=== PATIENT | male | born 1955 | race Caucasian/White ===

== ENCOUNTER 2019-02-06 12:42 | Inpatient (IN) ==
--- NOTE | 2019-02-06 13:11 | Emergency Department Note ---
Disposition Clinical Impression: Dizziness, Pre-syncope Hypertension Qualifiers: Hypertension type: unspecified Qualified Code(s): I10 - Essential (primary) hypertension Disposition: Admitted As Inpatient Time of Disposition: 16:09 General Adult HPI - General Chief complaint: ED Headache Stated complaint: Hypertension Time Seen by Provider: 02/06/19 12:54 Source: patient, family Mode of arrival: ambulatory Limitations: no limitations Nursing Notes Reviewed: Yes Vital Signs Reviewed: Yes - History of Present Illness HPI Narrative: 63M with PMHx of CVA and HTN presents to the ED from his PCP office after a near syncopal episode yesterday. Patient states once he was done mowing his yard yesterday he had an episode of extreme dizziness where he fell to the ground. The patient's fall was witnessed by his neighbor who went and got the patient's and they both helped him inside. The patient's took his blood pressure and thought it was extremely elevated. Patient went to his primary care doctor today because his blood pressure has maintained elevated even with administration of his at home losartan. Patient said his doctor sent him to the emergency room for evaluation of a possible stroke. Patient did not have any retained deficits from his previous stroke. Patient currently only complains of a headache and some minor dizziness which she describes as the room spinning around him. He states the dizziness worsens when he turns his head side to side or if he were to stand up suddenly. He denies any recent fevers, chills, chest pain, abdominal pain, N/V or changes in bowel habits. He admits to some shor tness of breath during the near syncopal episode which has now resolved. Pain Scale: 5 - Related Data Home Medications Medication Instructions Recorded Confirmed Ascorbate Calcium [Vitamin C] 500 mg PO DAILY 02/06/19 02/06/19 Cetirizine HCl [Zyrtec] 10 mg PO DAILY 02/06/19 02/06/19 Fluticasone Propionate Nasal 50 mcg NS DAILY PRN 02/06/19 02/06/19 [Flonase] Gemfibrozil 600 mg PO BID 02/06/19 02/06/19 Immune Glob/Plasma Fra Bovine 5 g PO DAILY 02/06/19 02/06/19 [Enteragam Powder Packet] Lipase/Protease/Amylase [Creon Dr 2 cap PO TIDWM 02/06/19 02/06/19 36,000 Units Capsule] Losartan Potassium 50 mg PO DAILY 02/06/19 02/06/19 Metformin HCl 500 mg PO BIDWM 02/06/19 02/06/19 Multivitamin [Daily Multiple 1 each PO DAILY 02/06/19 02/06/19 Vitamin] Omeprazole [PriLOSEC] 40 mg PO DAILY 02/06/19 02/06/19 Tamsulosin HCl 0.4 mg PO BID 02/06/19 02/06/19 Testosterone 100 mg TD DAILY 02/06/19 02/06/19 Allergies Allergy/AdvReac Type Severity Reaction Status Date / Time meperidine [From Demerol] Allergy See Verified 02/06/19 12:46 Comments morphine Allergy See Verified 02/06/19 12:46 Comments naproxen Allergy See Verified 02/06/19 12:46 Comments All systems ED: reviewed and negative except as stated. Review of Systems: As Per HPI Constitutional: Denies: fever, chills, weakness Cardiovascular: Denies: chest pain, palpitations, dyspnea on exertion Respiratory: Reports: dyspnea. Denies: cough, wheezes Gastrointestinal: Denies: abdominal pain, nausea, vomiting Genitourinary: Denies: dysuria, hematuria Musculoskeletal: Denies: back pain, neck pain Neurological: Reports: headache, vertigo Past Medical History - Past Medical History Attestation: Yes The following information was validated with the patient. Source: patient Medical history: Reports: GERD, hypertension Surgical history: Reports: cholecystectomy, herniorrhaphy, vasectomy Psychiatric history: Reports: no psych history - Social History Smoking Status: Never smoker Smokeless Tobacco Status: No Alcohol use: Reports: none Drug use: Reports: none Physical Exam - General Limitations: no limitations General appearance: alert, in no apparent distress - Head Head exam: atraumatic, normocephalic - Eye Eye exam: Present: normal appearance, EOMI - Chest Chest inspection: Present: normal inspection. Absent: tenderness, rash - Respiratory Respiratory exam: Present: normal lung sounds bilaterally. Absent: wheezes - Cardiovascular Cardiovascular exam: Present: regular rate, normal rhythm - Abdominal Exam Abdominal exam: Present: soft, Non-Tender. Absent: distention, guarding, rebound, rigidity - Extremities Exam Extremities exam: Present: normal inspection. Absent: tenderness, pedal edema - Neurological Exam Neurological exam: Present: alert, oriented X3, CN II-XII intact, normal gait, reflexes normal, other (no ataxia of either arm or leg). Absent: motor sensory deficit - Psychiatric Psychiatric exam: Present: normal affect, normal mood - Skin Skin exam: Present: warm, dry, intact Course Vital Signs Temperature 97.4 F L 02/06/19 12:43 Pulse Rate 73 02/06/19 12:43 Respiratory Rate 16 02/06/19 12:43 Blood Pressure 201/105 02/06/19 12:43 O2 Sat by Pulse Oximetry 98 02/06/19 12:43 Temperature 97.4 F L 02/06/19 12:43 Pulse Rate 73 02/06/19 12:43 Respiratory Rate 16 02/06/19 12:43 Blood Pressure 201/105 02/06/19 12:43 O2 Sat by Pulse Oximetry 98 02/06/19 12:43 Oxygen Delivery Oxygen Delivery Room Air Medical Decision Making - MDM Narrative Medical decision making narrative: Patient presents with elevated blood pressure after a near syncopal episode yesterday with concerns for a stroke. We will obtain cardiac workup as well as a CT scan of the patient's head to look for CVA or PRES. Prior to medication administration the patient's BP has decreased to 157/115, therefore we will hold off on BP meds. 1539 - pts labs and CT head are wnl. Pt has remained normotensive throughout his stay but did have another near syncopal episode with associated dizziness. Since pt is still experiencing dizziness and presyncope we will admit him for further workup of his dizziness. 1608 - pt has been accepted to the hospital by Dr. Ivory - Medical Records Medical records reviewed: Yes I reviewed the patient's medical records. - Lab Data Lab results reviewed: Yes I reviewed the patient's lab results. Result diagrams: 02/06/19 13:20 02/06/19 13:20 Lab Results 02/06/19 02/06/19 Range/Units 13:20 13:20 WBC 7.6 (4.3-11.1) K/mcL RBC 6.23 H (4.19-5.50) M/mcL Hgb 18.3 H (12.9-16.9) g/dL Hct 55.9 H (37.5-50.1) % MCV 89.7 (83.0-100.0) fL MCH 29.4 (28.0-33.3) pg MCHC 32.7 (31.6-35.5) g/dL RDW 12.8 (11.5-14.5) % Plt Count 264 (140-400) K/mcL MPV 10.6 (9.4-12.4) fL Immature Gran % 0.4 (0-4) % Seg Neutrophils % 66.4 % Lymphocytes % 22.5 % Monocytes % 7.1 % Eosinophils % 2.8 % Basophils % 0.8 % Neutrophils # 5.0 (1.6-8.9) K/mcL Lymphocytes # 1.7 (0.6-4.6) K/mcL Monocytes # 0.5 (0.0-1.3) K/mcL Eosinophils # 0.2 (0.0-0.6) K/mcL Basophils # 0.1 (0.0-0.2) K/mcL Sodium 138 (136-145) mEq/L Potassium 4.0 (3.5-5.1) mEq/L Chloride 103 (98-107) mEq/L Carbon Dioxide 27 (23-29) mEq/L BUN 17 (8-23) mg/dL Creatinine 0.77 (0.70-1.30) mg/dL Est GFR ( Amer) > 60 (> 60) Est GFR (Non-Af Amer) > 60 (> 60) BUN/Creatinine Ratio 22 (6-26) Glucose 200 H (70-105) mg/dL Calculated Osmolality 293 (280-300) Calcium 9.7 (8.6-10.3) mg/dL Troponin I < 0.03 (< 0.04) ng/mL - Radiology Data Radiology results reviewed: Yes I reviewed the patient's radiology results. - EKG Data EKG #1 EKG attestation: Yes I reviewed and interpreted this EKG. EKG results narrative: EKG obtained at 1317 on 02/06/2019 Heart rate 74 bpm, WA interval 161, QRS duration 115, QT 375, QTc 416 Sinus rhythm with left anterior fascicular block. ST segment elevation noted in leads V2 and V3 which are seen on previous EKG. No signs of ST segment depression. Intervals are appropriate. No significant changes when compared previous EKG dated 06/24/2015. Attestation Statement - Attestation Attestation: I, Willie Zhao, examined this patient and my medical decision-making was reviewed with the POSITION CLASSIFICATION SPECIALIST/PA/Advanced Practice Nurse/Resident Physician. I agree with the documented findings, disposition and treatment plan as described except to the extent set forth below. 63-year-old male presents emergency Department with concerns of vertiginous symptoms. Patient states he had an episode yesterday where he had acute onset of vertigo, was unable to stand and had laid on the ground. Patient reports he is unsure if he lost consciousness. They brought him into the house and checked his blood pressure where it was significantly elevated with a systolic greater than 200. Patient denies recent changes in his medications. His symptoms waxed and waned throughout the day and because they did not improve today he was evaluated by his primary care provider. He states he still is able to ambulate despite the vertiginous symptoms. He does not have focal neurologic deficits on exam emergency department.I reviewed the EKG with the resident and agree with the interpretation. Initial troponin negative. Patient will be admitted to the hospitalist for further care and evaluation.
[2019-02-06 13:31] LABS: Basophils # 0.1 K/mcL (0.0-0.2); Basophils % 0.8 %; Eosinophils # 0.2 K/mcL (0.0-0.6); Eosinophils % 2.8 %; Hemoglobin 18.3 g/dL (12.9-16.9); Immature Granulocytes % 0.4 % (0-4); Lymphocytes # 1.7 K/mcL (0.6-4.6); Lymphocytes % 22.5 %; Mean Corpuscular HGB Conc 32.7 g/dL (31.6-35.5); Mean Corpuscular Hemoglobin 29.4 pg (28.0-33.3); Mean Corpuscular Volume 89.7 fL (83.0-100.0); Mean Platelet Volume 10.6 fL (9.4-12.4); Monocytes # 0.5 K/mcL (0.0-1.3); Monocytes % 7.1 %; Platelet Count 264 K/mcL (140-400); Red Blood Count 6.23 M/mcL (4.19-5.50); Red Cell Distribution Width 12.8 % (11.5-14.5); Segmented Neutrophils % 66.4 %; White Blood Count 7.6 K/mcL (4.3-11.1)
[2019-02-06 13:40] LABS: Hematocrit 55.9 % (37.5-50.1)
[2019-02-06 14:07] LABS: BUN/Creatinine Ratio 22 (6-26); Blood Urea Nitrogen 17 mg/dL (8-23); Calcium 9.7 mg/dL (8.6-10.3); Carbon Dioxide 27 mEq/L (23-29); Chloride 103 mEq/L (98-107); Glucose 200 mg/dL (70-105); Osmolality,Calculated 293 (280-300); Sodium 138 mEq/L (136-145); Troponin I < 0.03 ng/mL (< 0.04); eGFR For African Americans > 60 (> 60); eGFR For Non-African Americans > 60 (> 60)
--- NOTE | 2019-02-06 16:22 | Electrocardiograph Report ---
[place] [id number] Test Date: 2019-02-06 Pat Name: Miquel Sharma Department: [id number] Room: Gender: M Lead Assembler: : [id number] Requested By: Devorah Fregoso Order Number: [id number] Reading MD: Lasha Black Measurements Intervals [place] Rate: 74 P: 65 MD: 161 QRS: -61 QRSD: 115 T: 45 QT: 375 QTc: 416 Interpretive Statements Sinus rhythm Probable left atrial enlargement Left anterior fascicular block Left ventricular hypertrophy Electronically Signed On 02-06-2019 16:21:11 EDT by Lasha Black
--- NOTE | 2019-02-06 17:01 | Event Note ---
Date of Encounter: 02/06/19 Time of Encounter: 17:00 to serve as attending attestation pending completion of resident H&P I examined this patient and my medical decision-making was reviewed with the Resident Physician Dr Khoury. I agree with the documented findings, disposition and treatment plan as described except to the extent set forth below. Mr Sharma is being observed for presyncope in setting of hypertension awake, cont headache, no vision changes or chest pain. Intermittent room spinning dizziness. no numbness, tingling, weakness gen- alert, awake,appears stated age eyes- pupils equal round cv- reg rate and rhythm, normal s1,s2, no murmurs appreciated lungs- ctabl neuro- AAOx3, CN grossly intact, no pronator drift, sensation instact throughout, strength 5/5 throughout Presyncope HTN, Uncontrolled Prior CVA hx outside window for tpa/intervention -permissive htn while pursuing stroke work up, prn labetalol, MRI/A Echo, neuro consult pending results -rule out ACS/arrhythmia- tele, trend trops,echo -asa ordered Chronic conditions: DM- SSI TOREY - cpap Chronically elevated Hgb at baseline- monitor, pursue work up if + CVA further dx and plan as noted by resident vte ppx scd
[2019-02-06] MEDS ORDERED: Ondansetron ODT 4 MG TAB.RAPDIS SL PRN (17:09)
[2019-02-06] MEDS ORDERED: Naloxone 0.4 MG/ML INJ IVP PRN (17:09)
[2019-02-06] MEDS ORDERED: Gadolinium Contrast Agent (WT Based) IV PRN (17:12)
[2019-02-06] MEDS ORDERED: *HR* Labetalol 20 MG/4 ML SYRINGE IVP PRN (17:18)
[2019-02-06] MEDS ORDERED: *HR* Dextrose 50 % in Water (Syg) 50 ML SYRINGE IVP PRN (17:19)
[2019-02-06] MEDS ORDERED: D5% in Water 1,000 ML IVC PRN (17:19)
[2019-02-06] MEDS ORDERED: Dextrose Gel 15 GM/37.5 ML TUBE PO PRN ×2 (17:19)
[2019-02-06] MEDS ORDERED: *HR* LORazepam 2 MG/ML VIAL IVP PRN (17:43)
[2019-02-06] MEDS ORDERED: Aspirin 81 MG TAB.CHEW PO STA (17:47)
--- NOTE | 2019-02-06 18:01 | Internal Med History&Physical ---
<Reina Potter - Last Filed: 02/06/19 18:04> Date of Encounter: 02/06/19 Internal Medicine - H&P: HPI History of present illness: Mr. Sharma is a 63 year old male Internal Medicine - H&P: Meds Ascorbate Calcium [Vitamin C] 500 mg PO DAILY 02/06/19 [History] Cetirizine HCl [Zyrtec] 10 mg PO DAILY 02/06/19 [History] Fluticasone Propionate Nasal [Flonase] 50 mcg NS DAILY PRN 02/06/19 [History] Gemfibrozil 600 mg PO BID 02/06/19 [History] Immune Glob/Plasma Fra Bovine [Enteragam Powder Packet] 5 g PO DAILY 02/06/19 [History] Lipase/Protease/Amylase [[place] Dr 36,000 Units Capsule] 2 cap PO TIDWM 02/06/19 [History] Losartan Potassium 50 mg PO DAILY 02/06/19 [History] Metformin HCl 500 mg PO BIDWM 02/06/19 [History] Multivitamin [Daily Multiple Vitamin] 1 each PO DAILY 02/06/19 [History] Omeprazole [PriLOSEC] 40 mg PO DAILY 02/06/19 [History] Tamsulosin HCl 0.4 mg PO BID 02/06/19 [History] Testosterone 100 mg TD DAILY 02/06/19 [History] Allergy/AdvReac Type Severity Reaction Status Date / Time meperidine [From Demerol] Allergy See Verified 02/06/19 12:46 Comments morphine Allergy See Verified 02/06/19 12:46 Comments naproxen Allergy See Verified 02/06/19 12:46 Comments All Systems PM: A 10-system review of systems was performed and is negative for pertinent findings except as documented above in the HPI. - Constitutional Vitals: Temp Pulse Resp BP Pulse Ox 97.4 F L 74 16 162/119 93 02/06/19 12:43 02/06/19 16:49 02/06/19 16:49 02/06/19 16:49 02/06/19 16:49 Internal Med - H&P Results - Labs CBC & Chem 7: 02/06/19 13:20 02/06/19 13:20 Labs: Short CBC 02/06/19 Range/Units 13:20 WBC 7.6 (4.3-11.1) K/mcL Hgb 18.3 H (12.9-16.9) g/dL Hct 55.9 H (37.5-50.1) % Plt Count 264 (140-400) K/mcL Neutrophils # 5.0 (1.6-8.9) K/mcL BMP 02/06/19 13:20 Sodium 138 Potassium 4.0 Chloride 103 Carbon Dioxide 27 BUN 17 Creatinine 0.77 Glucose 200 H Calcium 9.7 Cardiac Enzymes 02/06/19 Range/Units 13:20 Troponin I < 0.03 (< 0.04) ng/mL - Impressions ITS Impressions Head CT 02/06/19 13:04 IMPRESSION: No acute intracranial abnormality. Sinusitis D/ / Edson Castillo MD / Edson Castillo MD Interpreting Provider: Edson Castillo MD - Time Spent With Patient Total time spent is greater than 50% in coordination of care (as documented) at patient's floor/unit and/or counseling patient: - Attending Attestation I examined this patient and my medical decision-making was reviewed with the Resident Physician Dr Khoury. I agree with the documented findings, disposition and treatment plan as described except to the extent set forth below. Mr Sharma is being observed for presyncope in setting of hypertension awake, cont headache, no vision changes or chest pain. Intermittent room spinning dizziness. no numbness, tingling, weakness gen- alert, awake,appears stated age eyes- pupils equal round cv- reg rate and rhythm, normal s1,s2, no murmurs appreciated lungs- ctabl neuro- AAOx3, CN grossly intact, no pronator drift, sensation instact throughout, strength 5/5 throughout Presyncope HTN, Uncontrolled Prior CVA hx outside window for tpa/intervention -permissive htn while pursuing stroke work up, prn labetalol, MRI/A Echo, neuro consult pending results -rule out ACS/arrhythmia- tele, trend trops,echo -asa ordered Chronic conditions: DM- SSI TOREY - cpap Chronically elevated Hgb at baseline- monitor, pursue work up if + CVA further dx and plan as noted by resident vte ppx scd <Khoury,Ajay S - Last Filed: 02/06/19 20:02> Date of Encounter: 02/06/19 Time of Encounter: 17:26 Internal Medicine - H&P: HPI Admitted From: Home Plans for Post Hospital Care: Home History of present illness: Mr. Sharma is a 63 year old male with past medical history of hypertension, GERD, Crohn's disease, diabetes, "mini stroke" who [facility] workup of sudden-onset dizziness, BURGESS, and HTN He was following his usual routine yesterday, had mowed his lawn and washed his truck, and was standing talking to a neighbor when he had sudden, unprovoked onset of severe dizziness. He states he knew he was going to fall and tried to lower himself to the ground/break his fall. His neighbor and were nearby, neighbor witnessed the episode, and denies any LOC. They do report, however, that he was significantly clammy/diaphoretic, though they deny any notable pallor. Mr Sharma reports that at the time of the episode, he felt some mild shortness of breath, but denies chest pain or palpitations. He reports a headache that came on suddenly along with the dizziness and was 9/10 at onset. A neighbor had a portable pulse-oximeter, which was reading O2 sat of 82% and HR of 202 beats/min - The patient and his doubt the validity of these readings. After getting back inside the house, the patient measured his blood pressure and found it to be around 170/110, and repeated checks remained above the 150's/90's. He denies any trauma sustained in the fall except a scraped elbow. Patient states he has intermittent ringing in his ears from his time as a [employer] ar[employer]r, and states that his ears were ringing at the time of the dizzy spell, but they are not now. * The headache has been constant, but has gradually improved. It is described as bilateral, frontal, throbbing/pounding headache. * His initial dizzy spell resolved, but he has had constant residual feelings of being "off-kilter," and since the initial episode, has had several repeated minor dizzy spells, mostly brought on by movement. He also reports feeling "sh aky" without visible tremors. * His baseline blood pressures are 130's/80's, and are very well controlled. He remains hypertensive with systolics above 160. Initial BP in the ED was 200's/110's Past medical history is also significant for Diabetes, Crohn's disease, TOREY, and "mini-stroke" diagnosed by his PCP 15 years ago, with principal symptom of vision loss, and which left no residual deficits. Social history: * Reports history of smoking, but quit 15 years ago * Reports occasional alcohol consumption, but rarely due to his crohn's disease * Denies any history of drug use other than as prescribed * Exercises 6 days/week, mows 12 lawns/week, very active Past Med Surg Social Fam HX - Past Medical History Medical history: GERD, hypertension Additional medical history: stroke. crohns. ibs Psychiatric history: no psych history - Past Surgical History Surgical History: cholecystectomy, herniorrhaphy, vasectomy - Social History Smoking Status: Never smoker Smokeless Tobacco Status: No Alcohol use: none Drug use: none All Systems PM: A 10-system review of systems was performed and is negative for pertinent findings except as documented above in the HPI. - Constitutional Constitutional: no chills, no fever(s), no weight loss - EENT Eyes: no blurry vision, no change in vision, no diplopia Ears: tinnitus (intermittently), no decreased hearing, no ear discharge, no ear pain Nose, mouth and throat: nasal congestion, no sinus pain, no sinus pressure - Cardiovascular Cardiovascular ROS IM: diaphoresis (at time of initial dizzy spell, now resolved), dyspnea (at time of initial dizzy spell, now resolved), no chest pain, no irregular heart rhythm, no palpitations, no syncope - Respiratory Respiratory: no cough - Gastrointestinal Gastrointestinal: diarrhea (constant secondary to crohn's), nausea, no abdominal pain, no change in bowel habits, no change in stool character, no hematochezia, no melena, no vomiting - Genitourinary Genitourinary ROS male: no dysuria - Musculoskeletal Musculoskeletal ROS IM: no muscle weakness, no neck pain, no numbness, no tingling - Integumentary Integumentary IM: no pruritus, no rash, no unusual bruising - Neurological Neurological ROS: dizziness (Per history of present illness), headache(s) (Per history of present illness), tremor(s) (Feels "shaky"), no abnormal hearing, no abnormal speech, no confusion, no focal weakness - Hematologic/Lymphatic Hematologic/Lymphatic: no easy bleeding, no easy bruising - Constitutional Vitals: Temp Pulse Resp BP Pulse Ox 97.4 F L 74 16 162/119 93 02/06/19 12:43 02/06/19 16:49 02/06/19 16:49 02/06/19 16:49 02/06/19 16:49 Exam: Gen: Awake and alert, no acute distress, well-nourished, well kempt Head: Normocephalic, atraumatic Eyes: EOMI, no scleral icterus ENT: Mucous membranes moist, no oropharyngeal erythema, mild post-nasal drip noted. Nasal mucosa is boggy and edematous with mild, clear rhinorrhea. Tympanic membranes non-erythematous, no middle-ear effusions noted bilaterally CV: S1-S2 present, regular at a rate of approximately 75, no murmurs rubs or gallops Pulm: CTAB, not tachypneic, no respiratory distress, no increased work of breathing Abd: Soft, nontender to palpation, nondistended, no rebound or guarding. EXT: Grossly intact motor strength in all 4 extremities, no lower extremity edema, no distal cyanosis or pallor Skin: Warm, dry, intact, no rashes or lesions noted Neuro: Cranial nerves II-XII grossly intact, no focal neurologic deficits, no facial asymmetry Psych: normal mood and affect, Answers questions with intact judgement, appropr iate insight, and linear thought Internal Med - H&P Results - Labs CBC & Chem 7: 02/06/19 13:20 02/06/19 13:20 Labs: Short CBC 02/06/19 Range/Units 13:20 WBC 7.6 (4.3-11.1) K/mcL Hgb 18.3 H (12.9-16.9) g/dL Hct 55.9 H (37.5-50.1) % Plt Count 264 (140-400) K/mcL Neutrophils # 5.0 (1.6-8.9) K/mcL BMP 02/06/19 13:20 Sodium 138 Potassium 4.0 Chloride 103 Carbon Dioxide 27 BUN 17 Creatinine 0.77 Glucose 200 H Calcium 9.7 Cardiac Enzymes 02/06/19 Range/Units 13:20 Troponin I < 0.03 (< 0.04) ng/mL - Impressions ITS Impressions Head CT 02/06/19 13:04 IMPRESSION: No acute intracranial abnormality. Sinusitis D/ / Edson Castillo MD / Edson Castillo MD Interpreting Provider: Edson Castillo MD - Assessment and Plan (1) Dizziness Current Visit: Yes Status: Acute Assessment and plan: Sudden onset of severe dizziness resulting in a semi-controlled fall without loss of consciousness associated with headache Prior mild dizzy spells approximately 1-2 times a week consistently in the patient's past Prior "mini-stroke" approximately 15 years ago with primarily visual symptoms, no residual deficits Headache is ongoing, throbbing, 9/10 at onset, improving gradually, but without remission Ongoing feeling of being "off kilter" with occasional mild dizzy spells Differential diagnosis includes: * Cerebellar/Posterior stroke * MRI head and brain, MRA head and MRA neck have been ordered * Q4Hr neuro checks * Q4Hr NIH stroke scale * Permissive hypertension; Q4Hr VS checks, 5 mg IV labetalol Q4hr PRN for SBP greater than 220, with explicit instructions to contact physician before administration * Patient is outside the window for thrombolytic therapy, and initial BP was above threshold for alteplase administration. chronic crohns disease may indicate relative contraindication. * Mechanical thrombectomy may be indicated for patients with proximal large artery occlusion out to 24 hours after their last known well, however, Trials establishing utility of mechanical thrombectomy largely excluded patients with posterior circulation infarcts. observational studies suggest benefit for treatment of posterior circulation stroke, however, Mr Sharma is still outside timeframes normally used in eligibility criteria, and would likely be excluded based on lack of significant focal deficits (NIHSS >10). * Arrhythmia * Continuous telemetry monitoring in place * No palpitations felt at any time * Infectious etiologies (Na-Frost, Vestibular neuritis, Labrynthitis) * unlikely given normal opthalmoscope exam and lack of ear complaints * reconsider if clinical picture changes * Prior episode of vertigo secondary to otitis and sinusitis 6 months ago, no evidence of otitis at this time, pt complains of mild sinus congestion without other s/s of sinusitis at this time. * Vertebral artery dissection * Imaging as above * patient denies any neck pain * Aortic dissection, ACS, Coronary artery dissection * unlikely given no chest pain at any time, positional nature of dizzy spells, no focal neurologic deficits, SOB, etc. * on Tele monitoring * Repeat EKG in the morning * Repeat Tn q6hr x3 * Echocardiogram tomorrow * BPPV * [place]-Hallpike maneuver negative, no dizziness or nystagmus induced. * Presence of severe threats of morbidity/mortality on differential makes this Dx of exclusion at this point (2) Hypertension Current Visit: Yes Status: Acute Assessment and plan: Per pt and , pressures are very well controlled at home - usually 130's/80's BP on admission 201/105, remaining elevated with systolics above 160 * Concern for possibility of posterior stroke * Permissive Hypertension as outlined in plan for dizziness * Continue home Losartan after imaging results are back * Monitor kidney fcn with qAM BMPs * If imaging is negative, investigate alternate causes of suddenly and persistently elevated BP tomorrow Qualifiers: Hypertension type: unspecified Qualified Code(s): I10 - Essential (primary) hypertension (3) Diabetes Current Visit: Yes Status: Chronic Assessment and plan: A1c's found to be in the mid-7's on records review * diabetic diet * Corrective insulin per protocol Qualifiers: Qualified Code(s): E11.9 - Type 2 diabetes mellitus without complications (4) Crohns disease Current Visit: Yes Status: Chronic Assessment and plan: Continue home medications Qualifiers: Qualified Code(s): K50.90 - Crohn's disease, unspecified, without complications - Summary of Assessment and Plan Summary of Assessment and Plan: * Imaging to r/o posterior stroke * Q4Hr neuro checks, VS checks, NIHSS * Telemetry, AM EKG * Serial Tn Q6Hr x3 - Time Spent With Patient Total time spent is greater than 50% in coordination of care (as documented) at patient's floor/unit and/or counseling patient:
[2019-02-06] MEDS: Insulin LISPRO 300 UNITS/3 ML VIAL SQ SCH (20:25)
[2019-02-06] MEDS: Acetaminophen 325 MG TABLET PO PRN (20:31)
[2019-02-06 23:06] LABS: Amphetamine Screen,Urine Negative ng/mL (Cutoff=1000); Barbiturate Screen,Urine Negative ng/mL (Cutoff=200); Benzodiazepines Screen,Urine Negative ng/mL (Cutoff=200); Cannabinoid Screen,Urine Positive ng/mL (Cutoff = 50); Cocaine Screen,Urine Negative ng/mL (Cutoff= 300); Opiate Screen,Urine Negative ng/mL (Cutoff=300); Phencyclidine Screen,Urine Negative ng/mL (Cutoff=25)
[2019-02-07 02:34] LABS: Basophils # 0.1 K/mcL (0.0-0.2); Basophils % 1.2 %; Eosinophils # 0.4 K/mcL (0.0-0.6); Hemoglobin 18.5 g/dL (12.9-16.9); Immature Granulocytes % 0.3 % (0-4); Lymphocytes # 2.6 K/mcL (0.6-4.6); Lymphocytes % 35.1 %; Mean Corpuscular Hemoglobin 29.9 pg (28.0-33.3); Mean Corpuscular Volume 90.5 fL (83.0-100.0); Mean Platelet Volume 10.4 fL (9.4-12.4); Monocytes # 0.6 K/mcL (0.0-1.3); Monocytes % 8.3 %; Neutrophils # 3.7 K/mcL (1.6-8.9); Platelet Count 252 K/mcL (140-400); Red Blood Count 6.19 M/mcL (4.19-5.50); Red Cell Distribution Width 12.8 % (11.5-14.5); Segmented Neutrophils % 50.1 %; White Blood Count 7.4 K/mcL (4.3-11.1)
[2019-02-07 02:53] LABS: BUN/Creatinine Ratio 18 (6-26); Blood Urea Nitrogen 16 mg/dL (8-23); Calcium 9.4 mg/dL (8.6-10.3); Carbon Dioxide 25 mEq/L (23-29); Chloride 104 mEq/L (98-107); Chol/HDL Ratio 3.7 (0-4.9); Cholesterol 115 mg/dL (< 200); Glucose 148 mg/dL (70-105); HDL Cholesterol 31 mg/dL (40-59); LDL Cholesterol,Calculated 47 mg/dL (0-99); Osmolality,Calculated 290 (280-300); Potassium 3.6 mEq/L (3.5-5.1); Sodium 138 mEq/L (136-145); Triglycerides 185 mg/dL (< 150); eGFR For African Americans > 60 (> 60); eGFR For Non-African Americans > 60 (> 60)
[2019-02-07 05:04] LABS: INR 1.1; Prothrombin Time 12.9 Seconds (9.4-12.1)
[2019-02-07 07:53] LABS: Estimated Average Glucose 169 mg/dl
[2019-02-07] MEDS: Insulin LISPRO 300 UNITS/3 ML VIAL SQ SCH ×4 (08:24→20:14)
--- NOTE | 2019-02-07 09:07 | Internal Med Progress Note ---
<Ajay Khoury S - Last Filed: 02/07/19 16:20> Hospitalist Progress Note - Encounter Date of Encounter: 02/07/19 Time of Encounter: 09:07 - Subjective Interval History: Mr. Sharma is a 63-year-old male who is admitted to our service with severe dizziness, headache, hypertension. He reports feeling much better today. He denies any dizzy spells this morning, reports that his headache has improved significantly and is now a mild constant right-sided frontal pain. His blood pressures have remained elevated, but has not had any more readings above 200 systolic. He denies any blurry vision, double vision, ear pain, tinnitus, trouble swallowing or speaking, chest pain, palpitations, shortness of breath, cough, nausea, vomiting, black stool, bloody stool, dysuria, numbness/tingling/weakness anywhere - Exam Vitals: Temp Pulse Resp BP Pulse Ox 97.6 F 78 18 154/112 95 02/07/19 07:35 02/07/19 07:35 02/07/19 07:35 02/07/19 07:35 02/07/19 04:13 Exam: Gen: Awake and alert, no acute distress, well-nourished, well kempt, resting comfortably, present at bedside Head: Normocephalic, atraumatic Eyes: EOMI, no scleral icterus ENT: Mucous membranes moist, CV: S1-S2 present, regular at a rate of approximately 80, no murmurs rubs or gallops Pulm: CTAB, not tachypneic, no respiratory distress, no increased work of br eathing Abd: Soft, nontender to palpation, nondistended, no rebound or guarding. EXT: Grossly intact motor strength in all 4 extremities, no lower extremity edema, no distal cyanosis or pallor Skin: Warm, dry, intact, no rashes or lesions noted Neuro: Cranial nerves II-XII grossly intact, no focal neurologic deficits, no facial asymmetry Psych: normal mood and affect, Answers questions with intact judgement, appropriate insight, and linear thought - Assessment and Plan (1) Dizziness Current Visit: Yes Status: Acute Assessment and Plan: Sudden onset of severe dizziness resulting in a semi-controlled fall without loss of consciousness associated with headache on 02/05 Prior mild dizzy spells approximately 1-2 times a week consistently in the patient's past Prior "mini-stroke" approximately 15 years ago with primarily visual symptoms, no residual deficits Symptoms are resolved, ongoing headache per HPI MRI head and brain, MRA head and MRA neck showed no evidence of acute stroke or vascular occlusion. * Small foci of signal enhancement in cerebellum noted on T2/FLAIR image 9 * will discuss with radiology tomorrow if this may represent infarct. * d/c Q4Hr neuro checks, go to Qshift * d/c Q4Hr NIH stroke scale * d/c Q4Hr VS checks, go to Qshift * continue Permissive hypertension, 5 mg IV labetalol Q4hr PRN for SBP greater than 220, with explicit instructions to contact physician before administration No events on telemetry, no palpitations felt at any time * Maintain Continuous telemetry monitoring Infectious etiologies (Na-Frost, Vestibular neuritis, Labrynthitis) still considered unlikely given normal opthalmoscope exam and continued lack of ear complaints * reconsider if clinical picture changes * possible evaluation by ENT if other w/u does not reveal source of etiology Vertebral artery dissection * Imaging as above * Carotid doppler performed due to incomplete visualization of R vertebral artery showed no evidence of abnormality * patient denies any neck pain Aortic dissection, ACS, Coronary artery dissection extremely unlikely given no chest pain at any time, positional nature of dizzy spells, no focal neurologic deficits, SOB, etc. * on Tele monitoring * Repeat EKG not performed this morning, will get Stat EKG * Repeat Tn q6hr x3 showed no elevations * Echocardiogram showed mild concentric LV hypertrophy with mild LV dysfunction, otherwise no valvular, structural, or motion abnormalities. BPPV * Irvin-Hallpike maneuver negative, no dizziness or nystagmus induced. * Remains Dx of exclusion, continued BP elevation suggests other etiology (2) Hypertension Current Visit: Yes Status: Acute Assessment and Plan: BP shows some improvement: Average systolic yesterday was 167, with highest reading 201/105 Average systolic today is 151, with highest reading 164/110 * Permissive Hypertension as outlined in plan for dizziness * Home losartan resumed today * Continue to monitor kidney fcn with qAM BMPs * UA to further assess renal function (3) Diabetes Current Visit: Yes Status: Chronic Assessment and Plan: A1c was 7.5, sugars well controlled * diabetic diet * low-dose corrective insulin protocol (4) Crohns disease Current Visit: Yes Status: Chronic Assessment and Plan: continue home meds DVT Prophylaxis: scd's - Summary of Assessment and Plan Summary of Assessment and Plan: * Imaging r/o acute posterior stroke, further discussion with radiology tomorrow * Q shift neuro and VS checks * Telemetry, stat EKG * UA - Time Spent with Patient Total time spent is greater than 50% in coordination of care (as documented) at patient's floor/unit and/or counseling patient: Internal Medicine: Result - Labs CBC & Chem 7: 02/07/19 02:17 02/07/19 02:17 Labs: Short CBC 02/06/19 02/07/19 Range/Units 13:20 02:17 WBC 7.6 7.4 (4.3-11.1) K/mcL Hgb 18.3 H 18.5 H (12.9-16.9) g/dL Hct 55.9 H 56.0 H (37.5-50.1) % Plt Count 264 252 (140-400) K/mcL Neutrophils # 5.0 3.7 (1.6-8.9) K/mcL BMP 02/06/19 02/07/19 13:20 02:17 Sodium 138 138 Potassium 4.0 3.6 Chloride 103 104 Carbon Dioxide 27 25 BUN 17 16 Creatinine 0.77 0.87 Glucose 200 H 148 H Calcium 9.7 9.4 Cardiac Enzymes 02/06/19 02/06/19 02/07/19 Range/Units 13:20 20:17 02:17 Troponin I < 0.03 < 0.03 < 0.03 (< 0.04) ng/mL - ABG Interpretation ABG results: PT/INR, D-dimer PT 12.9 Seconds (9.4-12.1) H 02/07/19 03:27 - Impressions Impressions Head CT 02/06/19 13:04 IMPRESSION: No acute intracranial abnormality. Sinusitis D/ / Edson Castillo MD / Edson Castillo MD Interpreting Provider: Edson Castillo MD Brain MRI 02/06/19 17:12 IMPRESSION: Brain: Multiple small prior infarcts Multifocal small-vessel ischemic change No acute abnormality otherwise Multifocal partial paranasal sinus and mastoid opacification MRA head: No focal significant arterial narrowing or aneurysm MRA neck: Nonvisualization right vertebral artery No focal significant arterial narrowing is noted otherwise. D/ / Juma Bruner / Juma Bruner Interpreting Provider: Juma Bruner Neck MRA 02/06/19 17:12 IMPRESSION: Brain: Multiple small prior infarcts Multifocal small-vessel ischemic change No acute abnormality otherwise Multifocal partial paranasal sinus and mastoid opacification MRA head: No focal significant arterial narrowing or aneurysm MRA neck: Nonvisualization right vertebral artery No focal significant arterial narrowing is noted otherwise. D/ / Juma Bruner / Juma Bruner Interpreting Provider: Juma Bruner Head MRA 02/06/19 18:22 IMPRESSION: Brain: Multiple small prior infarcts Multifocal small-vessel ischemic change No acute abnormality otherwise Multifocal partial paranasal sinus and mastoid opacification MRA head: No focal significant arterial narrowing or aneurysm MRA neck: Nonvisualization right vertebral artery No focal significant arterial narrowing is noted otherwise. D/ / Juma Bruner / Juma Bruner Interpreting Provider: Juma Bruner Consult Discharge Plan - Plan Referrals: Amy Simental, CLASSIFICATION ANALYST [Primary Care Provider] - 02/15/19 1:30 pm <Jaycob Ivory - Last Filed: 02/07/19 17:00> Hospitalist Progress Note - Encounter Date of Encounter: 02/07/19 - Exam Vitals: Temp Pulse Resp BP Pulse Ox 97.6 F 85 18 170/123 96 02/07/19 11:29 02/07/19 16:47 02/07/19 16:47 02/07/19 16:47 02/07/19 16:47 - Assessment and Plan (1) Hypertensive emergency Current Visit: Yes Status: Acute (2) Diabetes Current Visit: Yes Status: Chronic (3) Dizziness Current Visit: Yes Status: Acute (4) Crohns disease Current Visit: Yes Status: Chronic - Time Spent with Patient Total time spent is greater than 50% in coordination of care (as documented) at patient's floor/unit and/or counseling patient: Internal Medicine: Result - Labs CBC & Chem 7: 02/07/19 02:17 02/07/19 02:17 Labs: Short CBC 02/07/19 Range/Units 02:17 WBC 7.4 (4.3-11.1) K/mcL Hgb 18.5 H (12.9-16.9) g/dL Hct 56.0 H (37.5-50.1) % Plt Count 252 (140-400) K/mcL Neutrophils # 3.7 (1.6-8.9) K/mcL BMP 02/07/19 02:17 Sodium 138 Potassium 3.6 Chloride 104 Carbon Dioxide 25 BUN 16 Creatinine 0.87 Glucose 148 H Calcium 9.4 Cardiac Enzymes 02/06/19 02/07/19 Range/Units 20:17 02:17 Troponin I < 0.03 < 0.03 (< 0.04) ng/mL - ABG Interpretation ABG results: PT/INR, D-dimer PT 12.9 Seconds (9.4-12.1) H 02/07/19 03:27 - Impressions Impressions Brain MRI 02/06/19 17:12 IMPRESSION: Brain: Multiple small prior infarcts Multifocal small-vessel ischemic change No acute abnormality otherwise Multifocal partial paranasal sinus and mastoid opacification MRA head: No focal significant arterial narrowing or aneurysm MRA neck: Nonvisualization right vertebral artery No focal significant arterial narrowing is noted otherwise. D/ / Juma Bruner / Juma Bruner Interpreting Provider: Juma Bruner Neck MRA 02/06/19 17:12 IMPRESSION: Brain: Multiple small prior infarcts Multifocal small-vessel ischemic change No acute abnormality otherwise Multifocal partial paranasal sinus and mastoid opacification MRA head: No focal significant arterial narrowing or aneurysm MRA neck: Nonvisualization right vertebral artery No focal significant arterial narrowing is noted otherwise. D/ / Juma Bruner / Juma Bruner Interpreting Provider: Juma Bruner Head MRA 02/06/19 18:22 IMPRESSION: Brain: Multiple small prior infarcts Multifocal small-vessel ischemic change No acute abnormality otherwise Multifocal partial paranasal sinus and mastoid opacification MRA head: No focal significant arterial narrowing or aneurysm MRA neck: Nonvisualization right vertebral artery No focal significant arterial narrowing is noted otherwise. D/ / Juma Bruner / Juma Bruner Interpreting Provider: Juma Bruner Echocardiogram 02/07/19 08:00 Impressions: LVEF 65-70%. Normal LV chamber size, and systolic function. Mild to moderate concentric left ventricular hypertrophy. Mild left ventricular diastolic dysfunction. Normal right ventricular structure and function. Unable to estimate RVSP due to lack of TR jet. No significant valvular dysfunction. Left Ventricular Wall Motion: Rest Echo Findings All wall segments showed normal motion. Findings: Study Quality * Technically adequate exam. ECG Findings * Sinus rhythm with BBB. Left Ventricle * LVEF 65-70%. * Normal LV chamber size and systolic function. * Mild to moderate concentric left ventricular hypertrophy. * Mild left ventricular diastolic dysfunction. * Atypical septal motion consistent with bundle branch block. Right Ventricle * Normal right ventricular structure and function. Left Atrium * Normal left atrial size. Right Atrium * Normal right atrial size. Interatrial Septum * No evidence of PFO by color Doppler. Aortic Valve * Trileaflet aortic valve. * Normal aortic valve structure. * No aortic regurgitation. * No aortic stenosis. Mitral Valve * Normal mitral valve structure. * No mitral regurgitation. * No mitral stenosis. Tricuspid Valve * No tricuspid regurgitation. * No tricuspid stenosis. * Normal tricuspid valve structure. * Unable to estimate RVSP due to lack of TR jet. Pulmonic Valve * Pulmonic valve is not well visualized. Aorta * Normally sized aortic root. Pericardium * The pericardium appears normal. IVC * Normal IVC dimensions and inspiratory collapse. Pulmonary Artery * Normal visualized portions of the main pulmonary artery. - Attending Attestation I examined this patient and my medical decision-making was reviewed with the Resident Physician on 02/07/19. I agree with the documented findings, disposition and treatment plan as described except to the extent set forth below. Mr Sharma is currently admitted for HTN and dizziness. He remains moderate to high risk due to potential for worsening clinical status. Mr Sharma feels less dizzy today. BP still very elevated. Meds restarted today. No CP or SOB. Headache improved overall. Exam Alert. Comfortable. NC EOMI. Mucus membranes moist Neck supple Heart reg No wheeze Abd soft. Moves all extremities No edema No rash I/P 1. HTN - remains uncontrolled. Will adjust meds 2. Dizziness - improving Further diagnoses and plan as above. <Ajay Khoury - Last Filed: 02/07/19 16:20> (2) Hypertension Qualifiers: Hypertension type: unspecified Qualified Code(s): I10 - Essential (primary) hypertension (3) Diabetes Qualifiers: Qualified Code(s): E11.9 - Type 2 diabetes mellitus without complications (4) Crohns disease Qualifiers: Qualified Code(s): K50.90 - Crohn's disease, unspecified, without complications <Jaycob Ivory - Last Filed: 02/07/19 17:00> (2) Diabetes Qualifiers: Diabetes mellitus type: type 2 Diabetes mellitus academic support assistant insulin use: without alf use Diabetes mellitus complication status: without complication Qualified Code(s): E11.9 - Type 2 diabetes mellitus without complications (4) Crohns disease Qualifiers: Gastrointestinal tract location: unspecified location Digestive disease complication type: without complication Qualified Code(s): K50.90 - Crohn's disease, unspecified, without complications
[2019-02-07] MEDS ORDERED: LOSARTAN POTASSIUM 50 MG PO SCH (11:45)
--- NOTE | 2019-02-07 15:17 | Electrocardiograph Report ---
[address] [address] Test Date: 2019-02-07 Pat Name: Miquel Sharma Department: 110 Room: 2N15 Gender: M Analytics Specialist: : [id number] Requested By: [id number] Order Number: [id number] Reading MD: Frederick Amos Measurements Intervals [place] Rate: 75 P: 50 WI: 165 QRS: -60 QRSD: 120 T: -9 QT: 362 QTc: 391 Interpretive Statements SINUS RHYTHM POSSIBLE LEFT ATRIAL ENLARGEMENT RIGHT BUNDLE BRANCH BLOCK LEFT ANTERIOR FASCICULAR BLOCK LEFT VENTRICULAR HYPERTROPHY Electronically Signed On 02-07-2019 15:15:19 EDT by Frederick Amos
[2019-02-07] MEDS: IMMUNE GLOB PO SCH (17:10)
[2019-02-07] MEDS: [UNRECOGNIZED DRUG - OTHER] PO SCH (17:10)
[2019-02-07] MEDS ORDERED: Isovue-370 500 ML BOTTLE IVP ONE (18:36)
[2019-02-07] MEDS: Acetaminophen 325 MG TABLET PO PRN (20:13)
[2019-02-07] MEDS ORDERED: Ibuprofen 600 MG TABLET PO ONE (23:06)
[2019-02-08 01:36] LABS: Basophils # 0.1 K/mcL (0.0-0.2); Basophils % 0.8 %; Eosinophils # 0.4 K/mcL (0.0-0.6); Eosinophils % 4.5 %; Hemoglobin 19.2 g/dL (12.9-16.9); Immature Granulocytes % 0.3 % (0-4); Lymphocytes # 2.7 K/mcL (0.6-4.6); Lymphocytes % 31.3 %; Mean Corpuscular HGB Conc 33.4 g/dL (31.6-35.5); Mean Corpuscular Hemoglobin 29.4 pg (28.0-33.3); Mean Platelet Volume 10.5 fL (9.4-12.4); Monocytes # 0.8 K/mcL (0.0-1.3); Neutrophils # 4.7 K/mcL (1.6-8.9); Platelet Count 259 K/mcL (140-400); Red Blood Count 6.52 M/mcL (4.19-5.50); Red Cell Distribution Width 12.7 % (11.5-14.5); Segmented Neutrophils % 54.1 %; White Blood Count 8.7 K/mcL (4.3-11.1)
[2019-02-08 01:37] LABS: BUN/Creatinine Ratio 22 (6-26); Blood Urea Nitrogen 21 mg/dL (8-23); Calcium 9.5 mg/dL (8.6-10.3); Carbon Dioxide 24 mEq/L (23-29); Chloride 103 mEq/L (98-107); Glucose 155 mg/dL (70-105); Osmolality,Calculated 290 (280-300); Potassium 3.6 mEq/L (3.5-5.1); Sodium 137 mEq/L (136-145); eGFR For African Americans > 60 (> 60); eGFR For Non-African Americans > 60 (> 60)
[2019-02-08 01:44] LABS: Hematocrit 57.4 % (37.5-50.1)
[2019-02-08 08:04] LABS: Bilirubin,Urine Negative (Negative); Blood,Urine Negative (Negative); Clarity,Urine Clear (Clear); Color,Urine Yellow (Yellow); Glucose,Urine (UA) Normal (Normal); Ketones,Urine Negative (Negative); Leukocyte Esterase,Urine Negative (Negative); Nitrite,Urine Negative (Negative); PH,Urine 5.5 pH Units (5.0-8.0); Protein,Urine Trace mg/dL (Neg-Trace); Specific Gravity,Urine > 1.030 (1.010-1.025); Urobilinogen,Urine Normal (Normal)
[2019-02-08] MEDS: Insulin LISPRO 300 UNITS/3 ML VIAL SQ SCH ×4 (08:57→20:14)
[2019-02-08] MEDS: IMMUNE GLOB PO SCH (09:02)
[2019-02-08] MEDS: [UNRECOGNIZED DRUG - OTHER] PO SCH (09:02)
[2019-02-08] MEDS: Ascorbic Acid 500 MG TABLET PO SCH (09:02)
[2019-02-08] MEDS: amLODIPine 5 MG TABLET PO ONE ×2 (10:30→11:35)
[2019-02-08] MEDS: amLODIPine 5 MG TABLET PO SCH (11:36)
[2019-02-08 12:31] LABS: % Iron Saturation 31 % (20-55); Iron 163 mcg/dL (65-175); Transferrin 377 mg/dL (203-362)
[2019-02-08 12:48] LABS: Basophils # 0.1 K/mcL (0.0-0.2); Eosinophils # 0.2 K/mcL (0.0-0.6); Eosinophils % 2.6 %; Hemoglobin 20.6 g/dL (12.9-16.9); Immature Granulocytes % 0.3 % (0-4); Mean Corpuscular HGB Conc 33.9 g/dL (31.6-35.5); Mean Corpuscular Hemoglobin 29.9 pg (28.0-33.3); Mean Platelet Volume 10.8 fL (9.4-12.4); Monocytes # 0.7 K/mcL (0.0-1.3); Monocytes % 8.2 %; Neutrophils # 5.8 K/mcL (1.6-8.9); Platelet Count 289 K/mcL (140-400); Red Cell Distribution Width 13.2 % (11.5-14.5); Segmented Neutrophils % 64.9 %; White Blood Count 8.9 K/mcL (4.3-11.1)
[2019-02-08 13:08] LABS: Hematocrit 60.7 % (37.5-50.1)
--- NOTE | 2019-02-08 13:08 | Nephrology Consult Note ---
Date of Encounter: 02/08/19 Time of Encounter: 12:50 Assessment and Plan (1) Hypertension Current Visit: Yes Status: Acute Consulted for hypertension. Recommend resuming the patient's home medications and slowly uptitrating antihypertensive medications. I will order that secondary hypertension workup. His hemoglobin is elevated, and this could be co ntributory. I counseled the patient to focus on lifestyle modifications including a low sodium diet. Thank you for having consulted the [facility], and my colleague Dr. Sanders will be on-call/on-service starting tomorrow. Qualifiers: Hypertension type: unspecified Qualified Code(s): I10 - Essential (primary) hypertension (2) Polycythemia Current Visit: Yes Status: Acute I see the patient takes testosterone at home, which can worsen hemoglobin elevation, which can contribute to hypertension. Recommend considering stopping testosterone in the long-term, if able. History of Present Illness - Reason for Consult Consult date: 02/08/19 accelerated hypertension Requesting physician: Ajay Khoury - Chief Complaint HTN - History of Present Illness 63-year-old male with past medical history of hypertension and et al who presented with strokelike symptoms. Neurology has been consulted. He was noted to be hypertensive and nephrology was consulted. The patient did not affirm smoking, use of cocaine, or other street drugs. He did not affirm consuming licorice, and he did not affirm having problems with sleep apnea to his knowledge. He denied taking [id number] NSAIDs. He did not report difficulty with emptying his bladder, or swelling. He reports that he has a hi story of Crohn's disease. Family History: his maternal grandmother had hypetension and a stroke, he said, but he did not affirm having any first-degree relatives with early cardiac or stroke . No known relatives with a history of end-stage renal disease, he reported Past Med Surg Social Fam HX - Past Medical History Medical history: CVA, GERD, hypertension Additional medical history: chrons Psychiatric history: no psych history - Past Surgical History Surgical History: cholecystectomy, herniorrhaphy, vasectomy - Social History Smoking Status: Former smoker Smokeless Tobacco Status: No Alcohol use: none Drug use: none Medications and Allergies Ascorbate Calcium [Vitamin C] 500 mg PO DAILY 02/06/19 [History] Cetirizine HCl [Zyrtec] 10 mg PO DAILY 02/06/19 [History] Fluticasone Propionate Nasal [Flonase] 50 mcg NS DAILY PRN 02/06/19 [History] Gemfibrozil 600 mg PO BID 02/06/19 [History] Immune Glob/Plasma Fra Bovine [Enteragam Powder Packet] 5 g PO DAILY 02/06/19 [History] Lipase/Protease/Amylase [Maren Cowan 36,000 Units Capsule] 2 cap PO TIDWM 02/06/19 [History] Losartan Potassium 50 mg PO DAILY 02/06/19 [History] Metformin HCl 500 mg PO BIDWM 02/06/19 [History] Multivitamin [Daily Multiple Vitamin] 1 each PO DAILY 02/06/19 [History] Omeprazole [PriLOSEC] 40 mg PO DAILY 02/06/19 [History] Tamsulosin HCl 0.4 mg PO BID 02/06/19 [History] Testosterone 100 mg TD DAILY 02/06/19 [History] Allergy/AdvReac Type Severity Reaction Status Date / Time Iodinated Contrast Media Allergy Severe Anaphylaxis Verified 02/07/19 19:02 meperidine [From Demerol] Allergy See Verified 02/06/19 12:46 Comments morphine Allergy See Verified 02/06/19 12:46 Comments naproxen AdvReac See Verified 02/07/19 23:13 Comments Review of Systems All Systems: reviewed and no additional remarkable complaints except as stated Exam - Vital Signs Vital signs: Initial Vital Signs Temp Pulse Resp BP Pulse Ox 97.4 F L 73 16 201/105 98 02/06/19 12:43 02/06/19 12:43 02/06/19 12:43 02/06/19 12:43 02/06/19 12:43 Vital Signs - Last 8 Hours Temp Pulse Resp BP Pulse Ox 02/08/19 11:05 97.9 F 90 16 164/116 96 02/08/19 09:17 92 02/08/19 07:05 97.7 F 92 16 158/111 97 Intake and Output 02/07/19 02/08/19 02/08/19 23:59 07:59 15:59 Intake Total 240 / 840 0 / 240 240 / 240 Output Total 0 / 0 Balance 240 / 840 0 / 240 240 / 240 Intake: Oral 240 / 840 0 / 240 240 / 240 Output: Urine 0 / 0 Other: Meal Dinner Breakfast Percent of Meal Consumed 100% 100% # Voids 2 Blood Glucose* 140 153 184 - General Appearance General appearance: well-developed, well-nourished, appears started age EENT: ATNC, PERRL, mucous membranes moist Neck: no JVD, no carotid bruit, supple Respiratory: no kyphosis, clear Cardiology: no murmurs, no edema, regular rate, regular rhythm, normal S1, normal S2 Gastrointestinal: normoactive bowel sounds, no tenderness, no guarding Additional Comments: prior abd surgery scars Integumentary: no rash, warm and dry Neurologic: no focal deficit, no asterixis, alert and oriented x3 Musculoskeletal: no deformities, no erythema, no cyanosis Psychiatric: mood/affect appropriate, cooperative Results - Lab Results 02/08/19 11:23 02/08/19 01:04 Most recent lab results 02/08/19 01:04 Calcium 9.5 Consult Discharge Plan - Plan Referrals: Amy Simental CNP [Primary Care Provider] - 02/15/19 1:30 pm
--- NOTE | 2019-02-08 13:23 | Internal Med Progress Note ---
<Ajay Khoury S - Last Filed: 02/08/19 16:34> Hospitalist Progress Note - Encounter Date of Encounter: 02/08/19 Time of Encounter: 09:30 - Subjective Interval History: Mr. Sky is 63-year-old male who suffered a severe sudden onset dizzy spell Tuesday with current headache and hypertension, and was admitted to the hospital Tuesday after seeing his primary care doctor He reports no problems overnight. Reports that his CPAP machine was never turned on her hooked up, so he slept without it last night, he did get a dose of Benadryl IV to help him sleep. He reports no more dizzy spells, no more headache, but reports that his blood pressures remained elevated. He denies any chest pain, shortness of breath, headache, dizziness, blurry vision, double vision, ringing in his ears, nausea, vomiting, numbness/tingling/weakness anywhere He reports his diarrhea is significantly improved since he was able to start his home powder supplement - Exam Vitals: Temp Pulse Resp BP Pulse Ox 97.9 F 90 16 164/116 96 02/08/19 11:05 02/08/19 11:05 02/08/19 11:05 02/08/19 11:05 02/08/19 11:05 Exam: Gen: Awake and alert, no acute distress, well-nourished, well kempt, resting comfortably, Head: Normocephalic, atraumatic, slightly plethoric face Eyes: EOMI, no scleral icterus ENT: Mucous membranes moist, CV: S1-S2 present, regular at a rate of approximately 70, no murmurs rubs or gallops Pulm: CTAB, not tachypneic, no respiratory distress, no increased work of breathing Abd: Soft, nontender to palpation, nondistended, no rebound or guarding. EXT: Grossly intact motor strength in all 4 extremities, no lower extremity mahendra ma, no distal cyanosis or pallor Skin: Warm, dry, intact, no rashes or lesions noted Neuro: Cranial nerves II-XII grossly intact, no focal neurologic deficits, no facial asymmetry Psych: normal mood and affect, Answers questions with intact judgement, appropriate insight, and linear thought - Assessment and Plan (1) Dizziness Current Visit: Yes Status: Resolved Assessment and Plan: Patient's dizziness has resolved, no more dizzy spells for the last 24 hours Continued lack of neurological abnormalities * We will allow the patient shower * Continue by mouth intake * Nephrology contacted, as dizziness likely related to severely elevated blood pressures (2) Hypertension Current Visit: Yes Status: Acute Assessment and Plan: Patient was prescribed 2.5 mg of Norvasc last night, as his diastolic pressures were over 120. Unfortunately patient did not receive this medication until the morning * Norvasc 5 mg by mouth daily has been added to attempt to control blood pressures * Nephrology consulted, appreciate input * Continued monitoring of blood pressure and other vital signs (3) Diabetes Current Visit: Yes Status: Chronic Assessment and Plan: Sugars remained well controlled, all measurements under 200 * Continue monitoring and sliding scale insulin (4) Crohns disease Current Visit: Yes Status: Chronic Assessment and Plan: Diarrhea resolved with patient's home powdered supplement * Continue current treatment DVT Prophylaxis: Subcutaneous heparin - Summary of Assessment and Plan Summary of Assessment and Plan: * Norvasc 5mg PO QD * Continue VS checks * Likely d/c tomorrow for further workup as outpt - Time Spent with Patient Total time spent is greater than 50% in coordination of care (as documented) at patient's floor/unit and/or counseling patient: Internal Medicine: Result - Labs CBC & Chem 7: 02/08/19 11:23 02/08/19 01:04 Labs: Short CBC 02/08/19 02/08/19 Range/Units 01:04 11:23 WBC 8.7 8.9 (4.3-11.1) K/mcL Hgb 19.2 H 20.6 H (12.9-16.9) g/dL Hct 57.4 H 60.7 H (37.5-50.1) % Plt Count 259 289 (140-400) K/mcL Neutrophils # 4.7 5.8 (1.6-8.9) K/mcL BMP 02/08/19 01:04 Sodium 137 Potassium 3.6 Chloride 103 Carbon Dioxide 24 BUN 21 Creatinine 0.97 Glucose 155 H Calcium 9.5 Urine 02/08/19 Range/Units 07:22 Urine Color Yellow (Yellow) Urine Clarity Clear (Clear) Urine pH 5.5 (5.0-8.0) pH Units Ur Specific Barrow > 1.030 H (1.010-1.025) Urine Protein Trace (Neg-Trace) mg/dL Urine Glucose (UA) Normal (Normal) mg/dL - ABG Interpretation ABG results: PT/INR, D-dimer PT 12.9 Seconds (9.4-12.1) H 02/07/19 03:27 Consult Discharge Plan - Plan Referrals: Amy Simental, [employer] [Primary Care Provider] - 02/15/19 1:30 pm <Jaycob Ivory - Last Filed: 02/08/19 17:59> Hospitalist Progress Note - Encounter Date of Encounter: 02/08/19 - Exam Vitals: Temp Pulse Resp BP Pulse Ox 97.9 F 94 16 156/104 94 02/08/19 11:05 02/08/19 17:12 02/08/19 17:12 02/08/19 17:12 02/08/19 17:12 - Assessment and Plan (1) Hypertensive emergency Current Visit: Yes Status: Acute (2) Diabetes Current Visit: Yes Status: Chronic (3) Dizziness Current Visit: Yes Status: Resolved (4) Crohns disease Current Visit: Yes Status: Chronic - Time Spent with Patient Total time spent is greater than 50% in coordination of care (as documented) at patient's floor/unit and/or counseling patient: Internal Medicine: Result - Labs CBC & Chem 7: 02/08/19 11:23 02/08/19 01:04 Labs: Short CBC 02/08/19 02/08/19 Range/Units 01:04 11:23 WBC 8.7 8.9 (4.3-11.1) K/mcL Hgb 19.2 H 20.6 H (12.9-16.9) g/dL Hct 57.4 H 60.7 H (37.5-50.1) % Plt Count 259 289 (140-400) K/mcL Neutrophils # 4.7 5.8 (1.6-8.9) K/mcL BMP 02/08/19 01:04 Sodium 137 Potassium 3.6 Chloride 103 Carbon Dioxide 24 BUN 21 Creatinine 0.97 Glucose 155 H Calcium 9.5 Urine 02/08/19 Range/Units 07:22 Urine Color Yellow (Yellow) Urine Clarity Clear (Clear) Urine pH 5.5 (5.0-8.0) pH Units Ur Specific Barrow > 1.030 H (1.010-1.025) Urine Protein Trace (Neg-Trace) mg/dL Urine Glucose (UA) Normal (Normal) mg/dL - ABG Interpretation ABG results: PT/INR, D-dimer PT 12.9 Seconds (9.4-12.1) H 02/07/19 03:27 - Impressions Impressions Chest CT 02/07/19 18:56 IMPRESSION: 6-7 mm noncalcified nodule possible fissural lymph node right lung base. RECOMMENDATIONS: Fleischner Society guidelines for follow-up and management of incidentally detected pulmonary nodules: Single Solid Nodule: Nodule size equals 6-8 mm In a low-risk patient, CT at 6-12 months, then consider CT at 18-24 months. In a high-risk patient, CT at 6-12 months, then CT at 18-24 months. - Low risk patients include individuals with minimal or absent history of smoking and other known risk factors. - High risk patients include individuals with a history or smoking or known risk factors. Radiology 2017 http://pubs.rsna.org/doi/full/10.1148/radiol.[email or web address] D/ / 02/08/2019 15:25:06 Ru Sam MD / ricky Interpreting Provider: Ru Sam MD - Attending Attestation I examined this patient and my medical decision-making was reviewed with the Resident Physician on 02/08/19. I agree with the documented findings, disposition and treatment plan as described except to the extent set forth be low. Mr Sharma is currently admitted for HTN and dizziness. He remains moderate to high risk due to potential for worsening clinical status. Mr Sharma is doing better. No BURGESS now. No CP or SOB. Dizziness seems better. Exam Alert Comfortable NC EOMI Mucus membranes dry Heart not tachy No wheeze. No edema. No rash. Plan: Add Norvasc. Heme consult for increased Hemoglobin. Renal consult for HTN. <Ajay Khoury S - Last Filed: 02/08/19 16:34> (2) Hypertension Qualifiers: Hypertension type: unspecified Qualified Code(s): I10 - Essential (primary) hypertension (3) Diabetes Qualifiers: Diabetes mellitus type: type 2 Diabetes mellitus longterm insulin use: without longterm use Diabetes mellitus complication status: without complication Qualified Code(s): E11.9 - Type 2 diabetes mellitus without complications (4) Crohns disease Qualifiers: Gastrointestinal tract location: unspecified location Digestive disease complication type: without complication Qualified Code(s): K50.90 - Crohn's disease, unspecified, without complications <Jaycob Ivory A - Last Filed: 02/08/19 17:59> (2) Diabetes Qualifiers: Diabetes mellitus type: type 2 Diabetes mellitus terminal system operator insulin use: without longterm use Diabetes mellitus complication status: without complication Qualified Code(s): E11.9 - Type 2 diabetes mellitus without complications (4) Crohns disease Qualifiers: Gastrointestinal tract location: unspecified location Digestive disease complication type: without complication Qualified Code(s): K50.90 - Crohn's disease, unspecified, without complications
--- NOTE | 2019-02-08 14:23 | Oncology Inp Consult Note ---
<Alexandrea Hackett - Last Filed: 02/08/19 16:42> Date of Encounter: 02/08/19 Time of Encounter: 14:12 Assessment and Plan (1) Polycythemia Status: Acute Assessment and plan: Hgb/Hct/RBC elevated since 2015. Further increased noted with this admission. Patient denies known history of elevated RBC/Hgb/Hct. Hx of sleep apnea (CPAP at home) Uses testosterone gel for "a few years" Former smoker. Today:Hgb 20.6/ Hct 60.7% 2015: Hgb 17.2 /Hct 50.7% Plan: Peripheral smear, EPO, and Jak2 mutations labs collected. Testosterone level ordered for AM. Patient instructed to hold testosterone for 1 month. Therapeutic phlebotomy 500 mL ordered for today. Repeat CBC with differential in the AM. Discussed that patient will need to follow-up with Dr. Dupont at the cancer center for labs in 2-3 weeks. He is agreeable. - Data of Consult Patient: new to practice Consult date: 02/08/19 Requesting Physician: Jaycob Ivory DO Primary Care Provider: Amy Simental CNP - Consult Narrative Reason for consult: symptomatic polycythemia History of present illness: Geronimo, a 63yo male with known history of HTN, Crohn's disease, DM2, CVA, and sleep apnea, presented the emergency department on 02/07/19 for headache and dizziness that began suddenly after mowing grass and washing his truck. He notes that his took his blood pressure and it was elevated at that time. After rest, his headache and dizziness did not resolve like it normally does, so he came to the ED. He was admitted for hypertensive emergency and a possible posterior stroke. Hematology was consulted on 02/08/19 due to concerns for symptomatic polycythemia. H+H 20.6/60.7%. Hemoglobin noted to be elevated in 2015 at 17.2. WBC and Platelets WNL. Geronimo is awake, resting in bed with his family at bedside. He denies headache or dizziness at this time. He states that his blood pressure continues to be high, but improved some after addition of amlodipine today. He denies history of DVT/PE, pruritus, visual disturbances, or early satiety. Denies fever or chills. He does have intermittent diarrhea and abdominal pain due to Crohn's, but states he manages well with diet and medications. Geronimo does note that he has sleep apnea and has not been using CPAP since his admission because it was not set-up last night. He also uses testosterone gel and began using it a few years ago. He is a former smoker of cigarettes, but notes quitting 15 years ago. He smoked 1ppd for 30+ years. Social history: . Lives with in [place], [place] Retired from the [employer] Former cigarette smoker. 1ppd x 30+ years. Quit 15 years ago. Denies alcohol use. Denies illicit drug use. Past Med Surg Social Fam HX - Past Medical History Medical history: CVA, diabetes, GERD, hypertension, kidney stones Additional medical history: Crohn's Disease Psychiatric history: no psych history - Past Surgical History Surgical History: cholecystectomy, herniorrhaphy, vasectomy - Social History Smoking Status: Former smoker Smokeless Tobacco Status: No Alcohol use: none Drug use: none Current living situation: Home Activity Level: Independent ambulation Medications and Allergies Ascorbate Calcium [Vitamin C] 500 mg PO DAILY 02/06/19 [History] Cetirizine HCl [Zyrtec] 10 mg PO DAILY 02/06/19 [History] Fluticasone Propionate Nasal [Flonase] 50 mcg NS DAILY PRN 02/06/19 [History] Gemfibrozil 600 mg PO BID 02/06/19 [History] Immune Glob/Plasma Fra Bovine [Enteragam Powder Packet] 5 g PO DAILY 02/06/19 [History] Lipase/Protease/Amylase [Maren Dr 36,000 Units Capsule] 2 cap PO TIDWM 02/06/19 [History] Losartan Potassium 50 mg PO DAILY 02/06/19 [History] Metformin HCl 500 mg PO BIDWM 02/06/19 [History] Multivitamin [Daily Multiple Vitamin] 1 each PO DAILY 02/06/19 [History] Omeprazole [PriLOSEC] 40 mg PO DAILY 02/06/19 [History] Tamsulosin HCl 0.4 mg PO BID 02/06/19 [History] Testosterone 100 mg TD DAILY 02/06/19 [History] Allergy/AdvReac Type Severity Reaction Status Date / Time Iodinated Contrast Media Allergy Severe Anaphylaxis Verified 02/07/19 19:02 meperidine [From Demerol] Allergy See Verified 02/06/19 12:46 Comments morphine Allergy See Verified 02/06/19 12:46 Comments naproxen AdvReac See Verified 02/07/19 23:13 Comments Constitutional: Present: headache(s). Absent: fatigue, fever(s) Cardiovascular: Absent: chest pain, dyspnea, edema, palpitations Respiratory: Absent: cough, dyspnea Gastrointestinal: Present: diarrhea. Absent: abdominal pain, constipation, dyspepsia, early satiety, hematemesis, hematochezia, melena, nausea, vomiting Musculoskeletal: Absent: muscle cramps, muscle weakness, numbness, tingling Integumentary: Absent: pruritus, rash Neurological: Present: dizziness, vertigo Additional comments: "felt like the truck was spinning around me" Hematologic/Lymphatic: Absent: easy bleeding, easy bruising, lymphadenopathy Consult Discharge Plan - Plan Referrals: Amy Simental CNP [Primary Care Provider] - 02/15/19 1:30 pm Inpatient Charges Provider: Dr. Patricio Dupont <Jerrod Dupont S - Last Filed: 02/08/19 17:12> Date of Encounter: 02/08/19 - Data of Consult Requesting Physician: Jaycob Ivory DO Primary Care Provider: Amy Simental CNP Inpatient Charges Consult - Inpatient: [id number] - Attending Attestation I examined this patient and my medical decision-making was reviewed with the Advanced Practice Nurse. I agree with the documented findings, disposition and treatment plan as described except to the extent set forth below. 1. Polycythemia/erythrocytosis Hemoglobin increased since 2014. Steadily went up from 17 range in 2014- today. Rest of CBC unremarkable Most likely secondary erythrocytosis. This risk factors include testosterone use. He uses testosterone gel supplement and I stopped it today. We will check testosterone levels His other risk factors include sleep apnea. He was evaluated by pulmonology July [address] Donis. Strongly advised to use CPAP regularly at least for part of the sleep which should help this polycythemia We will do workup for primary polycythemia. 2. He is admitted with dizziness and lightheadedness. Some of this could be related to polycythemia. Proceed with phlebotomy 500 M also now. We will do further phlebotomy as an outpatient to keep the hemoglobin below 17. MRI head and neck and MRI brain negative for acute infarct and no major vessel blockage. It showed a few small prior infarcts 3. CT chest showed 7 mm nodule right lung base possible lymph node. May follow this as an outpatient.
[2019-02-08] MEDS: Acetaminophen 325 MG TABLET PO PRN (18:04)
[2019-02-09 03:35] LABS: Basophils # 0.1 K/mcL (0.0-0.2); Basophils % 0.9 %; Eosinophils # 0.4 K/mcL (0.0-0.6); Eosinophils % 3.6 %; Hemoglobin 19.6 g/dL (12.9-16.9); Immature Granulocytes % 0.4 % (0-4); Lymphocytes % 31.3 %; Mean Corpuscular HGB Conc 33.7 g/dL (31.6-35.5); Mean Corpuscular Hemoglobin 29.9 pg (28.0-33.3); Mean Corpuscular Volume 88.7 fL (83.0-100.0); Monocytes # 0.9 K/mcL (0.0-1.3); Neutrophils # 5.3 K/mcL (1.6-8.9); Platelet Count 285 K/mcL (140-400); Red Blood Count 6.55 M/mcL (4.19-5.50); Red Cell Distribution Width 12.8 % (11.5-14.5); Segmented Neutrophils % 54.8 %; White Blood Count 9.7 K/mcL (4.3-11.1)
[2019-02-09 03:37] LABS: Hematocrit 58.1 % (37.5-50.1)
[2019-02-09 03:54] LABS: BUN/Creatinine Ratio 26 (6-26); Blood Urea Nitrogen 23 mg/dL (8-23); Calcium 9.4 mg/dL (8.6-10.3); Carbon Dioxide 23 mEq/L (23-29); Chloride 105 mEq/L (98-107); Glucose 172 mg/dL (70-105); Osmolality,Calculated 290 (280-300); Potassium 3.8 mEq/L (3.5-5.1); Sodium 136 mEq/L (136-145); eGFR For African Americans > 60 (> 60); eGFR For Non-African Americans > 60 (> 60)
[2019-02-09] MEDS: Insulin LISPRO 300 UNITS/3 ML VIAL SQ SCH ×2 (09:07→12:43)
[2019-02-09] MEDS: amLODIPine 5 MG TABLET PO SCH (09:11)
[2019-02-09] MEDS: Ascorbic Acid 500 MG TABLET PO SCH (09:12)
[2019-02-09] MEDS: IMMUNE GLOB PO SCH (09:15)
[2019-02-09] MEDS: [UNRECOGNIZED DRUG - OTHER] PO SCH (09:15)
--- NOTE | 2019-02-09 09:51 | Nephrology Progress Note ---
Date of Encounter: 02/09/19 Time of Encounter: 09:51 - Assessment and Plan (1) Hypertension Status: Acute Consulted for hypertension. Recommend resuming the patient's home medications and slowly uptitrating antihypertensive medications. I will order that secondary hypertension workup. His hemoglobin is elevated, and this could be contributory. I counseled the patient to focus on lifestyle modifications including a low sodium diet. adJust medications as needed. Qualifiers: Hypertension type: unspecified Qualified Code(s): I10 - Essential (primary) hypertension (2) Polycythemia Status: Acute I see the patient takes testosterone at home, which can worsen hemoglobin elevation, which can contribute to hypertension. Recommend considering stopping testosterone in the long-term, if able. Subjective Principal diagnosis: hypertension Interval history: patient seen. No new complaint. ROS stable. Objective - Vital Signs Vital signs: Vital Signs Temp Pulse Resp BP Pulse Ox 02/09/19 07:50 97.5 F L 108 14 144/102 97 02/09/19 04:10 97.6 F 99 14 127/92 95 02/09/19 00:41 97.8 F 88 17 120/93 96 02/08/19 22:20 15 95 02/08/19 19:49 94 18 156/104 02/08/19 17:12 94 16 156/104 94 02/08/19 16:15 87 16 93 02/08/19 13:15 93 16 96 02/08/19 11:40 93 16 94 02/08/19 11:05 97.9 F 90 16 164/116 96 Intake and Output 02/08/19 02/09/19 02/09/19 23:59 07:59 15:59 Intake Total 120 / 120 Balance 120 / 120 Intake: Oral 120 / 120 Other: Meal Breakfast Percent of Meal Consumed 90% Weight 84.2 kg Blood Glucose* 146 164 Patient Weight 02/09/19 23:59 Weight 84.2 kg - General Appearance General appearance: Present: well-developed, well-nourished EENT: Present: ATNC Neck: Present: supple Cardiology: Present: regular rate Neurologic: Present: alert and oriented x3 Psychiatric: Present: mood/affect appropriate - Lab 02/09/19 03:15 02/09/19 03:15 Most recent lab results 02/09/19 03:15 Calcium 9.4 Consult Discharge Plan - Plan Instructions: Amlodipine (By mouth), Chronic Hypertension (DC), Hypertensive Crisis (DC) Referrals: Amy Simental CNP [Primary Care Provider] - 02/15/19 1:30 pm Jerrod Dupont MD [Partnered Physician] - (Follow up in 2 weeks requested online) Prescriptions: amLODIPine [Norvasc] 2.5 mg PO DAILY #30 tablet Transmission Status: Received by [facility].
[2019-02-09 12:02] VITALS: BP 132/100
--- NOTE | 2019-02-09 12:21 | Discharge Summary ---
- NOTES TO OUTPATIENT PROVIDER Notes to Outpatient Provider: Mr Sharma was hospitalized for elevated BP and dizziness. Noted to have erythrocytosis. Seen by renal and heme. Had phlebotomy. BP improved with med adjustment. To follow up as outpatient. Orders not resulted at time of discharge: Pending orders 02/08/19 11:23 Erythropoietin Routine 02/08/19 13:25 JAK2 EXON 12 Mut [id number] Routine 02/09/19 03:15 Aldosterone, Blood AM 0400 Antiphospholipid Synd w reflex AM 0400 Metanephrines, Plasma (Free) AM 0400 Renin, Activity AM 0400 Date of Encounter: 02/09/19 Time of Encounter: 10:00 - Discharge Diagnosis (1) Hypertensive emergency Priority: Primary Status: Acute (2) Diabetes Priority: Secondary Status: Chronic Qualifiers: Diabetes mellitus type: type 2 Diabetes mellitus terminologist insulin use: without terminologist use Diabetes mellitus complication status: without complication Qualified Code(s): E11.9 - Type 2 diabetes mellitus without complications (3) Dizziness Priority: Secondary Status: Resolved (4) Crohns disease Priority: Secondary Status: Chronic Qualifiers: Gastrointestinal tract location: unspecified location Digestive disease complication type: without complication Qualified Code(s): K50.90 - Crohn's disease, unspecified, without complications (5) Polycythemia Priority: Secondary Status: Acute Hospital course: Mr. Sharma is a 63 year old male presented to ED with sudden onset of dizziness and headache. BP markedly elevated. He was admitted and had MRI which was negative for CVA. BP very hard to control at first. Pt with polycythema - seen by sejal and had phlebotomy. BP improved with addition of Norvasc. Today his BP is better controlled. He is afebrile and ready for discharge home. - Time Spent with Patient Total time spent providing and/or coordinating discharge services: 38min - Discharge Medications Prescriptions: New amLODIPine [Norvasc] 2.5 mg PO DAILY #30 tablet Acetaminophen [Tylenol] 650 mg PO Q6HR PRN tablet PRN Reason: Mild Pain/Fever Continued Fluticasone Propionate Nasal [Flonase] 50 mcg NS DAILY PRN PRN Reason: Nasal Congestion Cetirizine HCl [Zyrtec] 10 mg PO DAILY Omeprazole [PriLOSEC] 40 mg PO DAILY Lipase/Protease/Amylase [[place] Dr 36,000 Units Capsule] 2 cap PO TIDWM Immune Glob/Plasma Fra Bovine [Enteragam Powder Packet] 5 g PO DAILY Ascorbate Calcium [Vitamin C] 500 mg PO DAILY Tamsulosin HCl 0.4 mg PO BID Metformin HCl 500 mg PO BIDWM Losartan Potassium 50 mg PO DAILY Gemfibrozil 600 mg PO BID Multivitamin [Daily Multiple Vitamin] 1 each PO DAILY Discontinued Testosterone 100 mg TD DAILY Home Medications: Ascorbate Calcium [Vitamin C] 500 mg PO DAILY 02/06/19 [History] Cetirizine HCl [Zyrtec] 10 mg PO DAILY 02/06/19 [History] Fluticasone Propionate Nasal [Flonase] 50 mcg NS DAILY PRN 02/06/19 [History] Gemfibrozil 600 mg PO BID 02/06/19 [History] Immune Glob/Plasma Fra Bovine [Enteragam Powder Packet] 5 g PO DAILY 02/06/19 [History] Lipase/Protease/Amylase [Maren Cowan 36,000 Units Capsule] 2 cap PO TIDWM 02/06/19 [History] Losartan Potassium 50 mg PO DAILY 02/06/19 [History] Metformin HCl 500 mg PO BIDWM 02/06/19 [History] Multivitamin [Daily Multiple Vitamin] 1 each PO DAILY 02/06/19 [History] Omeprazole [PriLOSEC] 40 mg PO DAILY 02/06/19 [History] Tamsulosin HCl 0.4 mg PO BID 02/06/19 [History] Acetaminophen [Tylenol] 650 mg PO Q6HR PRN tablet 02/09/19 [Rx] amLODIPine [Norvasc] 2.5 mg PO DAILY #30 tablet 02/09/19 [Rx] Allergies/Adverse Reactions: Allergy/AdvReac Type Severity Reaction Status Date / Time Iodinated Contrast Media Allergy Severe Anaphylaxis Verified 02/07/19 19:02 meperidine [From Demerol] Allergy See Verified 02/06/19 12:46 Comments morphine Allergy See Verified 02/06/19 12:46 Comments naproxen AdvReac See Verified 02/07/19 23:13 Comments Date of admission: 02/07/19 14:51 Primary care physician: Amy Simental CNP Consults: 02/08/19 10:05 Consult to Oncology Hematology [CONS] Routine Consulting Provider: Mequon,Alexandrea M Reason for Consult: concerns for symptomatic polycythemia Time Notified: 10:06 Call Completed: Yes 02/08/19 10:26 Consult to Nephrology [CONS] Routine Consulting Provider: Kidney Karime/JADIEL/RUPERTO/LEONOR Reason for Consult: persistent HTN Time Notified: 10:27 Call Completed: Yes Discharging clinician: Jaycob Ivory Anticipated date of discharge: 02/09/19 - Constitutional Vitals: Temp Pulse Resp BP Pulse Ox 97.7 F 90 12 132/100 97 02/09/19 11:30 02/09/19 11:30 02/09/19 11:30 02/09/19 11:30 02/09/19 07:50 General appearance: Present: A&O X 3 Exam: See below - Head Head exam: Present: atraumatic, normocephalic - Eye Eye exam: Present: conjuntiva pink - ENT ENT exam: Present: mucous membranes moist - Respiratory Respiratory exam: Present: CTAB - Cardiovascular Cardiovascular exam: Present: RRR. Absent: tachycardia - GI/Abdominal GI/Abdominal exam: Present: soft. Absent: tenderness - Extremities Exam Extremities exam: Present: warm. Absent: tenderness - Neurological Exam Neurological exam: Present: alert, oriented X3, no focal deficits - Skin Skin exam: Present: dry, warm - Patient Status Disposition: Home, Self-Care Condition: Good Functional capacity at discharge: independent ambulation Overall status at discharge: patient is progressing back to baseline - Discharge Instructions Instructions: Amlodipine (By mouth), Chronic Hypertension (DC), Hypertensive Crisis (DC) Follow Up With: Amy Simental CNP [Primary Care Provider] - 02/15/19 1:30 pm Jerrod Dupont MD [Partnered Physician] - (Follow up in 2 weeks requested online) - Diet and Activity Activity: resume usual activities as tolerated Diet: advance to your usual diet
[2019-02-11 19:18] LABS: APTT (LE Anticoag) 45 sec (32-48); Diluted Russell Viper Venom 38 sec (33-44); PT (LE-Anticoag) 13.5 sec (12.0-15.5)
[2019-02-12 17:14] LABS: Metanephrine, Plasma 0.23 nmol/L (0.00-0.49)
== END 2019-02-09 13:15 | disposition home or self-care (01) | DRG 305 ==
LOC: 2NNU 12:42 → EMEROOARM 12:42 → 2NNU 18:18 → 2NENU 02-08 17:07
PROVIDERS: ADMIT Internal Medicine; ATTEND Internal Medicine